=== PATIENT | male | born 1960 | race Two or more races ===

== ENCOUNTER 2020-10-24 11:26 | Emergency (ER) | payer OTHER, SELFPAY ==
--- NOTE | ~2020-10-24 | XR_ITS ---
EXAMINATION: XR CHEST CLINICAL INFORMATION: Cough. COMPARISON: None TECHNIQUE: Frontal view of the chest was obtained. FINDINGS: The lungs are well-expanded and clear of acute pneumonic process. There are reticular nodular changes in right lung apex, likely chronic changes. The heart size and pulmonary vascularity is normal. No gross bony abnormality seen. XR/XR chest 1V IMPRESSION: Fibronodular changes right upper lobe likely chronic findings. Cannot exclude underlying primary pulmonary nodules. Correlate with clinical history.
[2020-10-24 11:53] VITALS: BP 117/58; PULSE 95; RESP 18; TEMP 36.8; O2SAT 95; BMI 23.8
--- NOTE | 2020-10-24 12:32 | PC.NURSE ---
CXR AND NASAL SWAB HAVE BEEN DONE AND SENT FOR RESULTS NO ACUTE RESP DISTRESS NOTED
--- NOTE | 2020-10-24 12:33 | ED.URI ---
HPI - URI/Sore Throat General Chief Complaint: Upper Respiratory Symptoms Stated Complaint: cough Time Seen by Provider: 10/24/20 12:05 Source: patient and family () Mode of arrival: ambulatory Limitations: language barrier ( is translating at bedside) History of Present Illness HPI Narrative: 60-year-old male with a past medical history of hypercholesterolemia presenting to the ED with a productive cough x1 week after choking on a piece of corn on Thursday. Denies any other symptoms complaints or concerns. Denies recent travel or sick contacts. MD elicited complaint: cough Onset (ago): week(s) (One week worse today) Consistency: constant Severity: moderate Description of mucous: clear, watery and yellow Able to tolerate fluids by mouth: Yes Exacerbating factors: nothing Relieving factors: nothing Associated symptoms: denies other symptoms Treatments prior to arrival: none Related Data Previous Rx's Medication Instructions Recorded acetaminophen [Tylenol Extra 1,000 mg PO QID PRN #14 tab 10/24/20 Strength] albuterol sulfate 1 inh INHALATION QID PRN #8.5 g 10/24/20 azithromycin See Rx Instructions .ROUTE 10/24/20 .COMPLEX #6 tab prednisone 40 mg PO DAILY 5 Days #10 tab 10/24/20 tramadol 50 mg PO BID PRN #14 tab 10/24/20 Allergies Allergy/AdvReac Type Severity Reaction Status Date / Time naproxen [NAPROXEN] Allergy Unknown UNK Unverified 05/10/20 17:44 oxycodone [OXYCODONE] Allergy Unknown UNK Unverified 05/10/20 17:44 Penicillins [PENICILLINS] Allergy Unknown RASH Unverified 05/10/20 17:44 Review of Systems Review of Systems: Constitutional : No Fever, No Chills, No fatigue, No Malaise ENT/Mouth : No sore throat, No runny nose Eyes: No Discharge Cardiovascular : No Chest Pain, No SOB Respiratory : + Cough, + Sputum, No Wheezing, No Smoke Exposure, No Dyspnea Gastrointestinal : No Nausea, No Vomiting, No Diarrhea Genitourinary : No irregular bleeding, No Dysuria, No Urinary Frequency, No Hematuria, No Urinary Incontinence, No Urgency, No Flank Pain, Musculoskeletal : No Myalgia Skin : No rash Neuro : No Headache Yes all other systems are reviewed and are negative PMFSH Past Medical History Attestation statement: The following information was validated with the patient. Social History Social History Advance Directives: No Advance Directives Information Provided: No Physical Exam Vital Signs: Vital Signs: Last Vital Signs Temp 98.2 F 10/24/20 11:53 Pulse 77 10/24/20 13:50 Resp 18 10/24/20 13:50 BP 128/60 10/24/20 13:50 Pulse Ox 98 10/24/20 13:50 Body Mass Index 23.8 vital signs have been reviewed as normal and appeared to be correct. Blood pressure normal. Heart rate normal. Respiration rate normal. Temperature normal. Oxygen saturation normal. Appearance: Alert. Oriented X3. No acute distress. Head: Normal external exam. Normocephalic. Atraumatic. Eyes: PERRLA. EOMI. Conjunctiva and sclera normal. Eyelids normal. ENT: EAC normal. TM's Normal. Pharynx normal. Uvula midline. Moist mucous membranes. No trismus noted. No drooling noted. No muffled voice noted. Neck: Normal inspection. Neck supple. FROM. No adenopathy. Thyroid Normal. No meningeal signs. No neck mass noted. CVS: Normal heart rate and rhythm. Heart sound normal. No murmurs noted. Pulses normal throughout. Respiratory: No respiratory distress. Painless inspiration. Breath sounds normal. No wheezes/rales/rhonchi noted. Chest nontender. No accessory muscle usage noted or decreased air movement noted. Abdomen: Soft and nontender. Bowel sounds normal in all 4 quadrants. No distention noted. No organomegaly noted. No visible injury noted. Back: Full range of motion noted. Skin: Skin warm and dry. Normal skin color. Normal skin turgor. No rashes/lesions/lacerations noted. Extremities: No lower extremity edema. No calf tenderness noted. Extremities exhibit normal range of motion. Extremities nontender. Neuro: Oriented X 3. No motor deficit. No sensory deficit. Reflexes normal. Course Course Course Narrative: 12pm - 60-year-old male with a past medical history of hypercholesterolemia presenting to the ED with a productive cough x1 week after choking on a piece of corn on Thursday. - concern for pneumonia vs COVID vs viral syndrome - COVID/RSV/flu swab and a chest x-ray - if chest x-ray negative for pneumonia will DC home with antibiotics and symptomatic treatment along with instructions to self isolate until COVID swab is negative or until his symptoms are improving and 10-14 days after his 1st symptoms started. Patient understands and agrees with this plan. MDM - URI/Sore Throat Medical Records Attestation: I reviewed the patient's medical records. Lab Data Attestation: I reviewed the patient's lab results. Labs: Lab Results 10/24/20 Range/Units 12:19 Coronavirus (PCR) NEGATIVE (Negative) Influenza Type A (PCR) NEGATIVE (Negative) Influenza Type B (PCR) NEGATIVE (Negative) RSV RNA Qual (PCR) NEGATIVE (Negative) Imaging Data Chest x-ray: Attestation: I personally reviewed and interpreted this imaging study as follows: Radiologist's impression: FINDINGS: The lungs are well-expanded and clear of acute pneumonic process. There are reticular nodular changes in right lung apex, likely chronic changes. The heart size and pulmonary vascularity is normal. No gross bony abnormality seen. XR/XR chest 1V IMPRESSION: Fibronodular changes right upper lobe likely chronic findings. Cannot exclude underlying primary pulmonary nodules. Correlate with clinical history. Discharge Plan Discharge Clinical Impression: Bronchitis Patient Disposition: Home, Self-Care Instructions: Acute Bronchitis (ED) Prescriptions: New azithromycin 250 mg tablet See Rx Instructions .ROUTE .COMPLEX Qty: 6 RF: 0 prednisone 20 mg tablet 40 mg PO DAILY 5 Days Qty: 10 RF: 0 tramadol 50 mg tablet 50 mg PO BID PRN (Reason: pain) Qty: 14 RF: 0 acetaminophen [Tylenol Extra Strength] 500 mg tablet 1,000 mg PO QID PRN (Reason: fever or pain) Qty: 14 RF: 0 albuterol sulfate 90 mcg/actuation HFA aerosol inhaler 1 inh inhalation QID PRN (Reason: shortness of breath or wheezing) Qty: 8.5 RF: 0 Referrals: Physician,Unknown [Primary Care Provider] - 2 days Interventions: ED Discharge Assessment Last Done: 10/24/20 14:51 Discharge Date/Time: 10/24/20 14:53 Print Language: Kittitian
[2020-10-24 13:42] LABS: Influenza A PCR NEGATIVE (Negative); Influenza B PCR NEGATIVE (Negative); Resp Syncy Virus RNA Qual PCR NEGATIVE (Negative); SARS COV2 PCR INHOUSE NEGATIVE (Negative)
[2020-10-24 13:50] VITALS: BP 128/60; PULSE 77; RESP 18; O2SAT 98
== END 2020-10-24 14:53 | disposition home or self-care (01) ==
PROVIDERS: Physician Assistant Medical; Emergency Provider Emergency Medicine
DX: J40 Bronchitis, not specified as acute or chronic (principal); R05 Cough; Z20.822 Contact with and (suspected) exposure to COVID-19; Z79.899 Other long term (current) drug therapy
CPT/HCPCS: 0241U; 36415; 71045; 99283

== ENCOUNTER 2025-08-09 10:55 | Outpatient (AMB) | payer MEDICAID, SELFPAY ==
[2025-08-09 11:05] VITALS: BMI 23.6
--- NOTE | 2025-08-09 11:05 | A.PHYSOV ---
Vital Signs 08/09/25 11:05 Height 5 ft 5 in Weight 142 lb BMI 23.6 Intake Visit Reasons: 3M and F/U after injection 06/08/2025 Intake Note: Patient is a 65 year old male in office today for a follow up visit on 3 month medication management. Follow after C7-T1 interlaminar epidural injection 06/08/25 Allergies naproxen (NAPROXEN) Allergy (Unknown, Verified 08/09/25 11:05) UNK oxycodone (OXYCODONE) Allergy (Unknown, Verified 08/09/25 11:05) UNK Penicillins (PENICILLINS) Allergy (Unknown, Verified 08/09/25 11:05) RASH prednisone Allergy (Unknown, Verified 08/09/25 11:05) Unknown HPI Comments Details: History of Present Illness The patient is a 65 year old male presenting for a follow-up visit for persistent neck pain and cervicogenic headaches. His history is significant for multiple bilateral greater occipital nerve blocks, as well as cervical and lumbar epidural injections. His most recent procedures were on May 29, 2025, which included a C7-T1 epidural injection and a left L5 transforaminal injection for left-sided lumbar radicular symptoms. The lumbar injection provided good relief for his leg symptoms, but he continues to experience headaches, which have been constant over the past week. His chronic pain is managed with a combination of a buprenorphine patch, tramadol as needed for breakthrough pain, duloxetine 30 mg daily, diclofenac 75 mg twice daily as needed, and lidocaine patches. He reports that the diclofenac 75 mg is very effective for his pain. Functionally, he experiences pain after walking for about one hour and finds it helpful to use a shopping cart for support when at the supermarket. Cervicogenic headaches have been getting worse. He also has component of the rebound headaches. Pain Description - Location: The patient reports persistent pain in the neck and head, described as cervicogenic headaches. - Quality: The patient describes the pain as being too much. - Exacerbating Factors: Pain is exacerbated by walking for about an hour. - Relieving Factors: Pushing a shopping cart helps alleviate pain when walking in a store. - Relieving Factors: Prior left L5 transforaminal injection helped with left leg radicular symptoms. - Relieving Factors: He reports diclofenac 75 mg is very good for his pain. Results [facility] Medical History Cervicocranial syndrome Cervical radiculitis Chronic pain syndrome Surgical History History of nasal surgery History of hand surgery Social History Household Members: Spouse Alcohol intake: current Alcohol intake frequency: does not drink Patient Tobacco Use Status: Current everyday Tobacco user Current occupational status: unemployed Review of Systems Narrative Review of Systems - Neurological: Reports persistent neck pain and cervicogenic headaches, with headaches noted all over his head in the last week. - Cardiovascular: Reports he has no problems with his blood pressure. - Musculoskeletal: Denies current left leg pain following a recent injection. Physical Exam Exam Exam: Physical Exam - General: No acute distress noted. - Integumentary: Inspection revealed no bleeding. Patient ambulates without antalgia. Dural tension signs were negative. Neurological examination of upper and lower extremities was nonfocal. Occipital tenderness with palpation. Cervical range of motion was restricted in all planes. Lumbar extension was restricted. Patient demonstrated no upper motor neuron signs. Vital Signs: BMI result Body Mass Index 23.6 Office Procedures AMB Occipital Nerve Block Occipital Nerve Block Procedure Details: Skin on the back of her head was prepped with alcohol. Greater occipital nerve was localized by palpating approximately 2-3 cm lateral to the external occipital protuberance. About [address] between occipital protuberance and mastoid process. 25 gauge needle was inserted perpendicular to the skin and total volume of 3 cc containing 20 mg of triamcinolone and 2% lidocaine was injected. The identical procedure was repeated on the opposite side. Occipital Nerve Block - 00449: Bilateral All charges added?: Procedure code (CPT) selection complete Office Meds Kenalog 40 mg/mL suspension for injection Performing Provider: Serg Goodwin DO Performing Location: [facility] Administered by: Serg Goodwin DO on 08/09/25 11:50 Dose Route Admin Location Dispensed Lot Number Expiration Date [employer] A[employer] 40 mg peripheral nerve block 1 mL [address]-3 [employer] Total Dispensed Waste 1 mL 0 % lidocaine (PF) 20 mg/mL (2 %) injection solution Performing Provider: Serg Goodwin DO Performing Location: [facility] Administered by: Serg Goodwin DO on 08/09/25 11:50 Dose Route Admin Location Dispensed Lot Number Expiration Date [facility] Research Aide 120 mg peripheral nerve block 10 mL [id number] [facility] Total Dispensed Waste 10 mL 40 % Assessment & Plan Assessment & Plan (1) Chronic pain syndrome: Code(s): G89.4 - Chronic pain syndrome Category: Medical (2) Cervical radiculitis: Code(s): M54.12 - Radiculopathy, cervical region Category: Medical (3) Cervicocranial syndrome: Code(s): M53.0 - Cervicocranial syndrome Category: Medical (4) Myofascial pain: Code(s): M79.18 - Myalgia, other site Category: Medical (5) Chronic pain syndrome: Code(s): G89.4 - Chronic pain syndrome Category: Medical (6) Cervical radiculitis: Code(s): M54.12 - Radiculopathy, cervical region Category: Medical (7) Cervicocranial syndrome: Code(s): M53.0 - Cervicocranial syndrome Category: Medical (8) Occipital neuralgia: Code(s): M54.81 - Occipital neuralgia Category: Medical Qualifiers: Laterality: bilateral Qualified Code(s): M54.81 - Occipital neuralgia Plan Pain Management - Analgesia: The patient is currently using a buprenorphine 7.5 mcg patch weekly, tramadol as needed, duloxetine 30 mg daily, diclofenac 75 mg twice a day as needed, and lidocaine patches. - Analgesia: He reports his headaches are persistent and that the pain is too much, prompting a request for stronger medication. - Analgesia: He finds diclofenac 75 mg to be very effective. - Adverse Effects: The potential for rebound headaches from regular tramadol use was discussed as a cause for his persistent headaches. - Activities of Daily Living: He experiences pain after walking for about an hour, but using a shopping cart provides support and helps him walk in a store. - Aberrant Drug Related Behaviors: He requested a stronger pain medication. Plan Patient was informed and verbally consented to the use of an ambient scribe for clinic note documentation during this visit. 1. Cervicogenic Headache The patient's persistent headaches are suspected to be exacerbated by rebound effects from regular tramadol use. The plan is to increase the buprenorphine patch from 7.5 mcg to 10 mcg weekly to provide better baseline analgesia. The patient was counseled to reduce or avoid using tramadol. A prescription for Tylenol was provided for additional pain relief, after clarifying that it is the same medication as Panadol. 2. Chronic Neck Pain The patient's chronic neck pain will continue to be managed with his current multimodal regimen. Refills will be provided for duloxetine 30 mg, diclofenac topical gel, and lidocaine patches. He will also continue diclofenac 75 mg tablets as needed, which he finds effective. 3. Left Lumbar Radiculopathy The patient's left-sided lumbar radicular symptoms have responded well to the recent left L5 transforaminal injection. No new interventions are planned for this issue at this time. He will follow up in three months for further evaluation. Discussion Notes I discussed my concern that the patient's persistent headaches may be rebound headaches caused by his regular use of tramadol. I recommended reducing tramadol use in attempt to reduce rebound headaches and instead increasing the dose of his long-acting buprenorphine patch from 7.5 mcg to 10 mcg to provide better, more stable pain control. The patient agreed to this plan. We also discussed his request for Panadol, and I clarified that this is the same as Tylenol (acetaminophen), for which I will send a prescription. I will provide refills for his other medications, including duloxetine, diclofenac gel, and lidocaine patches. The patient signed consent for the repeat greater occipital nerve blocks today. Follow-up is scheduled in three months, after he returns from his vacation. Risks and benefits of the procedure were discussed with the patient. Potential alternative measures were also discussed. Patient understands that the procedure is completely elective. Potential side effects associated with injectable medications were discussed. All questions were answered to the patient's satisfaction. Patient Instructions - I am increasing the dose of your pain patch. Change your buprenorphine patch to the 10 mcg dose once every week. - Try not to use the tramadol. Using it too often may be making your headaches worse. - A prescription for Tylenol has been sent to your pharmacy. This is the same medicine as Panadol. - Prescriptions for your other medicines, including diclofenac gel, lidocaine patches, and duloxetine (Cymbalta), have been sent to your pharmacy. - If you need to walk for a long distance, using a walker may help. - Please schedule a follow-up appointment for March, after you return from your trip. Orders: Orders AMB Occipital Nerve Block Today M53.0 - Cervicocranial syndrome, M54.81 - Occipital neuralgia Medications: New lidocaine 5% Applied daily 12 hours on, 12 hours off 3 patches topical Q24H 90 ea 5RF Myofascial pain 30 days M54.12 - Radiculopathy, cervical region, M79.18 - Myalgia, other site acetaminophen Up to 6 tablets a day. 1,000 mg (2 x 500 mg) PO Q6H PRN 180 tabs 5RF pain 30 days G89.4 - Chronic pain syndrome, M53.0 - Cervicocranial syndrome, M54.12 - Radiculopathy, cervical region buprenorphine 10 mcg/hour 1 patch transdermal QWEEK 4 ea 0RF Chronic pain syndrome 28 days G89.4 - Chronic pain syndrome, M53.0 - Cervicocranial syndrome, M54.12 - Radiculopathy, cervical region diclofenac sodium 1% (Arthritis Pain (diclofenac)) Applied to affected area 3 times a day 4 grams topical QID 300 grams 5RF 30 days M53.0 - Cervicocranial syndrome, M79.18 - Myalgia, other site duloxetine 30 mg PO DAILY 30 caps 11RF Chronic pain syndrome 30 days G89.4 - Chronic pain syndrome Discontinued buprenorphine 7.5 mcg/hour (No) Discontinued Reason: Doctor's Order 1 patch transdermal QWEEK 28 days 4 ea 0RF Chronic pain syndrome G89.4 - Chronic pain syndrome, M53.0 - Cervicocranial syndrome, M54.12 - Radiculopathy, cervical region Coding Level of Care Code Est Pt Level 4 (23033) Add On Problem Visit Only Diagnoses Chronic pain syndrome G89.4 Cervical radiculitis M54.12 Cervicocranial syndrome M53.0 Myofascial pain M79.18 Bilateral occipital neuralgia M54.81 Laterality: bilateral CPT Codes Occipital Nerve Block - Occipital Block 05374: Bilateral ([id number])
--- OUTSIDE RECORDS SUMMARY | 2025-08-09 14:13 | XMS_ITS | Encounter Summary ---
Author Organization [facility] Address [address] [place] [address] Care Team Providers Care Salvage Engineer Name Role Phone Anya Wilks Primary Care Provider [phone] Reason for Visit * Reason Onset Date Comments Prior authorization 08/07/2025 Encounter Details Date Type Department Care Team ([facility] st Contact Info) Description 08/07/2025 Telephone Pulmonology - [address] [place] [address] Jeanna Garza, [address] [place] [address] Social History Tobacco Use Types Packs/Day Years Used Date Smoking Tobacco: Every Day Cigarettes 0.5 43 Started: 1982 Smokeless Tobacco: Never Comments:Smoke 5 cigaretts a day but before the nicotine gum he used to smoke 1 pack daily Alcohol Use Standard Drinks/Week Comments No 0 (1 standard drink = 0.6 oz pur e alcohol) Sex and Gender Information Value Date Recorded Sex Assigned at Not on file Legal Sex Male 12:48 AM EST Gender Identity Not on file Sexual Orientation Not on file documented as of this encounter Progress Notes * Rober Becker MA - 08/07/2025 12:56 PM EST Faxed notes * Caesar Jarvis - 08/07/2025 11:57 AM EST Prior authorization request administrative information forms received via fax. Forms attached to encounter. * Caesar Jarvis - 08/07/2025 11:54 AM EST PA: ROFLUMILAST 250 MCG TABS COY: [id number] documented in this encounter Plan of Treatment Upcoming Encounters Date Type Department Care Team (Late st Contact Info) Description 10/30/2025 11:25 AM EDT Office Visit Pulmonology - [place] [address] [facility] [address] [place] [phone] Jeanna Garza NP [address] [place] [address] documented as of this encounter Visit Diagnoses Not on filedocumented in this encounter Care Teams Salvage Engineer Relationship Specialty Start Date End Date Anya Wilks PA [address] [place] [address] PCP - General 12/05/24 documented as of this encounter
--- OUTSIDE RECORDS SUMMARY | 2025-08-09 14:13 | XMS_ITS | Clinical Summary ---
Author Organization [employer] Address [address] [facility] [address] [place] [address] Care Team Providers Care Associate Professor Of Economics Name Role Phone Unavailable Primary Care Provider Unavailabl e Social History Tobacco Use Types Packs/Day Years Used Date Smoking Tobacco: Never Assessed Sex and Gender Information Value Date Recorded Sex Assigned at Not on file Legal Sex Male 9:33 PM EDT Gender Identity Not on file Sexual Orientation Not on file Plan of Treatment Health Maintenance Due Date Last Done Comments CT Colonography 1962 Colonoscopy 1962 Colorectal Cancer Screening 1962 Depression Screening 1962 FIT DNA/Cologuard 1962 FIT 1962 FOBT 1962 Lipid Panel 1962 SDOH Screening 1962 Sigmoidoscopy 1962 Disability Screening 1962 Alcohol/Substance Use Screening 1974 Tobacco Screening 1974 Hepatitis C Screening 1980 IPV Vaccines (2 of 3 - Adult catch-up series) 06/09/2008 05/12/2008 RSV Patients and Patients Aged 60 years or older (1 - Risk 50-74 years 1-dose series) 2012 Pneumococcal Vaccine: 50+ Years (2 of 2 - PCV) 03/31/2019 03/31/2018 COVID-19 Vaccine (3 - season) 2025 01/07/2021, 12/05/2020 Diabetes: Hemoglobin A1C 05/11/2026 025, 11/28/2024, 05/10/2024, Additional history exists DTaP/Tdap/Td Vaccines (2 - Td or Tdap) 03/31/2028 03/31/2018, 06/12/2008, 05/12/2008 Hepatitis A Vaccines Aged Out 12/26/2009, 10/20/20 08 No longer eligible based on patient's age to complete this topic Hepatitis B Vaccines Completed 12/26/2009, 08/07/2008, 06/12/2008 HIV Screening Completed 04/09/2018 Meningococcal Vaccine Aged Out 10/07/2018 No ross ghulam eligible based on patient's age to complete this topic Influenza Vaccine Completed 05/11/2025, , 10/03/2020, Additional history exists Zoster Vaccines Completed 05/11/2025, 01/2022, 05/05/2019 HIB Vaccines Aged Out No longer eligi ble based on patient's age to complete this topic HPV Vaccines Aged Out No longer eligi ble based on patient's age to complete this topic Meningococcal B Vaccine Aged Out No l onger eligible based on patient's age to complete this topic RSV under 20 months Aged Out No longe r eligible based on patient's age to complete this topic Rotavirus Vaccines Aged Out No longer eligible based on patient's age to complete this topic
--- OUTSIDE RECORDS SUMMARY | 2025-08-09 14:13 | XMS_ITS | Encounter Summary ---
Author Organization [facility] Address [address] [place] [address] Care Team Providers Care Deputy District Customs Director Name Role Phone Anya Wilks Primary Care Provider Reason for Visit * Reason Onset Date Comments Medication Problem 08/01/2025 Encounter Details Date Type Department Care Team ([facility] st Contact Info) Description 08/01/2025 Telephone Pulmonology - [place] [address] [facility] [address] [place] [address] Jeanna Garza, [address] [place] [address] Social History Tobacco Use Types [...] as of this encounter Progress Notes * Veronica Mohamud MA - 08/03/2025 8:32 AM EST PA: KATJA Rincon * Veronica Mohamud MA - 08/02/2025 2:10 PM EST PA: TRELEGY ELLIPTA 200-62.5 MCG/ACT AER POW initiated on cmm Dx chronic cough and copd * Caesar Jarvis - 08/01/2025 2:25 PM EST PA: TRELEGY ELLIPTA 200-62.5 MCG/ACT AER POW COY: [id number] * Caesar Jarvis - 08/01/2025 2:23 PM EST PA: ROFLUMILAST 250 MCG TABS COY: [id number] documented in this encounter Plan of Treatment Upcoming Encounters Date Type Department Care Team (Late st Contact Info) Description 10/30/2025 11:25 AM EDT Office Visit Pulmonology - [place] [address] [facility] [address] [place] [phone] Jeanna Garza NP [address] [place] [address] documented as of this encounter Visit Diagnoses Not on filedocumented in this encounter Care Teams Deputy District Customs Director Relationship Specialty Start Date End Date Anya Wilks PA [address] [place] [address] PCP - General 12/05/24 documented as of this encounter
--- OUTSIDE RECORDS SUMMARY | 2025-08-09 14:13 | XMS_ITS | Clinical Summary ---
Author Organization [address] [facility] Address [address] [place] [address] Phone Care Team Providers Care Table Cut Off Saw Operator Name Role Phone Anya Wilks Primary Care Provider [phone] Allergies Active Allergy Reactions Criticality Noted Date Comments Aspirin 12/05/2024 Naproxen Wheezing 11/13/2015 Oxycodone Wheezing 11/13/2015 Penicillins Itching 06/21/2014 Prednisone Other Low 08/09/2015 Agitation Medications cholecalcifero l (VITAMIN D-3) 25 mcg (1,000 unit) tablet Take 1 tablet (1,000 Units total) by mouth 1 (one) time each day. Active diphenhydrAMIN E (BENADRYL) 25 mg capsule Take by mouth every 6 (six) hours if needed for itching. Active metFORMIN (FORTAMET) 1,000 mg 24 hr tablet Take 1 tablet (1,000 mg total) by mouth 1 (one) time each day with dinner. Do not crush, chew, or split. Active ammonium lactate (LAC-HYDRIN) 12 % lotion Apply topically if needed for dry skin. Active melatonin 3 mg tablet Take 2 tablets (6 mg total) by mouth. Active atorvastatin (LIPITOR) 20 mg tablet Take 1 tablet (20 mg total) by mouth at bedtime. Active omeprazole (PriLOSEC) [address] capsule Take 1 capsule (20 mg total) by mouth 1 (one) time each day. Do not crush or chew. Active diclofenac (VOLTAREN) 75 mg EC tablet Take 1 tablet (75 mg total) by mouth 2 (two) times a day. 12/28/19 25 Active diclofenac (VOLTAREN) 1 % topical gel APPLY 3 GRAMS TOPICALLY THREE TIMES A DAY 12/25/19 25 Active docusate sodium (COLACE) 100 mg capsule Take 1 capsule (100 mg total) by mouth. 12/18/19 22 Active DULoxetine (CYMBALTA) [address] capsule Take 1 capsule (30 mg total) by mouth 1 (one) time each day. 12/24/19 25 Active EPINEPHrine (EpiPen 2-Perry) 0.3 mg/0.3 mL injection Inject 0.3 mL (0.3 mg total) into the thigh if needed. 07/07/20 12 Active fluticasone propionate (FLONASE) 50 mcg/actuation nasal spray Administer 1 spray into each nostril 1 (one) time each day. 10/08/19 24 Active hydrOXYzine HCL (ATARAX) 50 mg tablet Take 1 tablet (50 mg total) by mouth 1 (one) time each day. 12/22/19 25 Active lidocaine (LIDODERM) 5 % patch APPLY 1-3 TOPICAL EVERY DAY FOR 30 DAYS. 12 HOURS ON/12 HOURS OFF 12/23/19 25 Active nicotine polacrilex (NICORETTE) 2 mg gum Weeks 1-6: 1 piece of gum every 1-2 hours; chew at least 9 pieces per day during the first 6 weeks to increase chances of quitting. Weeks 7-9: 1 piece of gum every 2-4 hours. Weeks 10-12: 1 piece of gum every 4-8 hours 12/20/19 25 Active oxyBUTYnin XL (DITROPAN-XL) 10 mg 24 hr tablet TAKE 1 TABLET BY MOUTH EVERYDAY AT BEDTIME Authorized by: WYATT MARSHALL 03/09/20 23 Active prazosin (MINIPRESS) 2 mg capsule TAKE 1 CAPSULE BY MOUTH AT BEDTIME FOR NIGHTMARES Active traMADoL (ULTRAM) 50 mg tablet TAKE 1-2 TABLET ORAL THREE TIMES A DAY NEEDED FOR 28 DAYS 12/28/19 25 Active traZODone (DESYREL) 100 mg tablet TAKE 1-2 TABLETS BY MOUTH AT BEDTIME IF NEEDED FOR SLEEP. 12/22/19 25 Active nebulizer accessories kit COPD use as needed for exacerbations 11/09/19 24 Active nebulizer and compressor device COPD use as needed for exacerbations 11/09/19 24 Active loratadine (CLARITIN) 10 mg tablet Take 1 tablet (10 mg total) by mouth 1 (one) time each day if needed for allergies. Active albuterol HFA (PROAIR HFA ; PROVENTIL HFA ; VENTOLIN HFA) 90 mcg/actuation inhalerIndicat ions:Chronic cough Inhale 2 puffs by mouth every 6 (six) hours if needed for wheezing. 18 g 2 01/24/20 25 Active albuterol 2.5 mg /3 mL (0.083 %) nebulizer solutionIndica tions:Chronic cough Take 3 mL (2.5 mg total) by nebulization every 4 (four) hours if needed for shortness of breath or wheezing (cough and). 75 mL 1 01/24/20 25 Active ipratropium-al buteroL (DUONEB) 0.5-2.5 mg/3 mL nebulizer solutionIndica tions:Chronic cough,Chronic obstructive pulmonary disease, unspecified COPD type (CMS/HCC V24, CMS/HCC V28) Take 3 mL by nebulization every 6 (six) hours. 360 mL 2 05/15/20 25 2025 Active fluticasone-um eclidinium-kenneth anterol (Trelegy Ellipta) 200-62.5-25 mcg inhalerIndicat ions:Chronic cough,Chronic obstructive pulmonary disease, unspecified COPD type (CMS/HCC V24, CMS/HCC V28) Inhale 1 puff (200 mcg total) by mouth 1 (one) time each day. Rinse mouth with water after use to reduce aftertaste and incidence of candidiasis. Do not swallow. 1 each 2 07/31/20 25 2025 Active roflumilast (Daliresp) 250 mcg tabletIndicati ons:Chronic obstructive pulmonary disease, unspecified COPD type (CMS/HCC V24, CMS/HCC V28) Take 250 mcg by mouth 1 (one) time each day. 28 tablet 07/31/20 25 Active Anoro Ellipta 62.5-25 mcg/actuation inhalerIndicat ions:Chronic cough,Cigarett e smoker Inhale 1 puff by mouth 1 (one) time each day. 1 each 2 05/15/20 25 2024 Discontinued fluticasone furoate (Arnuity Ellipta) 200 mcg/actuation blister with device inhalerIndicat ions:Chronic cough,Chronic obstructive pulmonary disease, unspecified COPD type (CMS/HCC V24, CMS/HCC V28) Inhale 1 puff by mouth 1 (one) time each day. 1 each 4 05/15/20 25 2024 Discontinued Active Problems Problem Noted Date Diagnosed Date Constipation 05/05/2019 External hemorrhoid 02/24/2019 Sigmoid diverticulosis 02/24/2019 Overview (01/23/2025): Mild per colonoscopy COPD (chronic obstructive pulmonary disease) Overview (01/23/2025): PFTs 05/14/18 show mild obstruction. Trigger finger of all digits of both hands 01/23 Overview (01/23/2025): Trigger finger 4th finger of L hand- Dr Brush at [facility] 04/19/18 F/u [facility], Dr Brush. Dx: s/p FDP rupture left ring finger, s/p dorsal capsulectomy L fourth PIP joint. Advised wear gloves in the winter for cold intolerance, there is not a surgical option for lack of flexion at DIP joint that would not put flexion of his other joints at risk. Pre-diabetes 01/05/2014 Chronic midline low back pain without sciatica 0 01/04/2014 Nephrolithiasis 01/04/2014 Overview (01/23/2025): Follows with [facility] Urology PPD positive, treated 01/04/2014 Overview (01/23/2025): At [facility] TB clinic from 07/2008 till 11/2008 with Rifampim Depression 06/30/2013 PTSD (post-traumatic stress disorder) 06/30/2013 Hypercholesterolemia 06/29/2013 Overview (01/23/2025): Lab Results Component Value Date TRIGLYC 129 01/04/2014 CHOL 202* 01/04/2014 HDL 35* 01/04/2014 LDL 142* 01/04/2014 Brachial neuritis or radiculitis 04/07/2011 Overview (01/23/2025): IMO update Cervical spondylosis without myelopathy 04/07/20 11 Cervicalgia 04/07/2011 Overview (01/23/2025): Sp epid inject by dr cervantes on 05/24/14 04/14/17 F/u with Dr Cervantes, Dx: Brachial neuritis or radiculitis. Advised contnue medications, TENS unit, continue HEP, recommend PT, will proceed with greater occipital nerve blocks and L shoulder subacromial injection. C7-T1 AJAY will be scehduled. 06/18/17 F/u Dr Cervantes. Plan: continue TENS unit, HEP. Cervical injections repeated PRN, proceed with bialteral greater occipital nerve blocks. F/u 3 months 09/18/17 F/u Dr Cervantes. Advised continue TENS unit, continue HEP, repeat C7-T1 epidural steorid injection and bialteral greater occipital nerve blocks. F/u 3 months 04/08/18 F/u Dr Adams. Contiue repeat C7-T1 injections and occipital nerve blocks. Start duloxetine 30 mg for pain management. 06-08-18 - Dr. Cervantes - continue all meds without change, will trial cervical epidural injections and occipital nerve blocks. RTC in 2 months. 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 Closed fracture of one rib 09/11/2010 Overview (01/23/2025): RIGHT #8/9 Encounters Date Type Department Care Team Description 08/07/2025 Telephone Pulmonology [address] [place] [address] Jeanna Garza NP 08/01/2025 Telephone Pulmonology [facility] [address] [facility] [address] [place] [phone] Jeanna Garza NP 07/31/2025 10:35 AM EST Office Visit Pulmonology - [address] [place] [phone] Jeanna Garza NP Chronic cough (Primary Dx); Chronic obstructive pulmonary disease, unspecified COPD type ([facility] V24, [facility] V28); Lung nodule seen on imaging study; Overweight (BMI 25.0-29.9) 05/15/2025 1:25 PM EDT Office Visit Pulmonology [address] [phone] Jeanna Garza NP Chronic cough (Primary Dx); Cigarette smoker; Chronic obstructive pulmonary disease, unspecified COPD type ([facility] V24, [facility] V28) 05/15/2025 12:30 PM EDT Ancillary Procedure Pulmonology [address] [phone] Chronic cough; Cigarette smoker from Last 3 Months Immunizations Immunization Administration Dates Next Due Moderna SARS-CoV-2 COVID-19, mRNA, LNP-S, preservative free 01/07/2021,12/05/2020 Medical History Medical History Date Comments Cervical spondylosis without myelopathy DX:Cervical spondylosis without myelopathy Hypercholesterolemia 06/29/2013 Lab Results Component Value Date TRIGLYC 129 01/04/2014 CHOL 202* 01/04/2014 HDL 35* 01/04/2014 LDL 142* 01/04/2014 COPD (chronic obstructive pu lmonary disease) ([facility] V24, [facility] V28) Prediabetes Family History Medical History Relation Name Comments Autoimmune disease Neg Hx Breast cancer Neg Hx Colon cancer Neg Hx Coronary artery disease Neg Hx Diabetes Neg Hx Heart attack Neg Hx Heart failure Neg Hx Hyperlipidemia Neg Hx Hypertension Neg Hx Mental illness Neg Hx Prostate cancer Neg Hx Sleep apnea Neg Hx Thyroid disease Neg Hx Social History Tobacco Use Types Packs/Day Years Used Date Smoking Tobacco: Every Day Cigarettes 0.5 43 Started: 1982 Smokeless Tobacco: Never Tobacco Cessation:Ready to Q uit: Not Asked; Counseling Given: Not Answered Comments:Smoke 5 cigaretts a day but before the nicotine gum he used to smoke 1 pack daily Alcohol Use Standard Drinks/Week Comments No 0 (1 standard drink = 0.6 oz pur e alcohol) Sex and Gender Information Value Date Recorded Sex Assigned at Not on file Legal Sex Male 12:48 AM EST Gender Identity Not on file Sexual Orientation Not on file Last Filed Vital Signs Vital Sign Reading Time Taken Comments Blood Pressure 111/77 07/31/2025 10:30 AM EST Pulse 91 07/31/2025 10:30 AM EST Temperature 36.1 C (96.9 F) 07/31/2025 10:30 AM EST Respiratory Rate 14 07/31/2025 10:30 AM EST Oxygen Saturation 96% 07/31/2025 10:30 AM EST Inhaled Oxygen Concentration - - Weight 65.5 kg (144 lb 6.4 oz) 07/31/2025 10:30 AM EST Height 152.4 cm (5') 07/31/2025 10:30 AM EST Body Mass Index 28.2 07/31/2025 10:30 AM EST Plan of Treatment Upcoming Encounters Date Type Department Care Team (Late st Contact Info) Description 10/30/2025 11:25 AM EDT Office Visit Pulmonology - [address] [place] [phone] Jeanna Garza, [place] [address] [place] [address] Health Maintenance Due Date Last Done Comments Colorectal Cancer Screening: Colonoscopy 1960 IPV Vaccines (2 of 3 - Adult catch-up series) 06/09/2008 05/12/2008 RSV Immunization Adult Patients (1 - Risk 50-74 years 1-dose series) 2012 Pneumococcal Vaccine: 50+ Years (2 of 2 - PCV) 03/31/2019 03/31/2018 Social Influencers of Health Screening 07/27/2022 Depression Screening 08/24/2024 COVID-19 Vaccine ( - season) 2025 01/07/2021, 12/05/2020 Lung Cancer Screening (Low Dose CT) 03/21/2026 03/21/2025 DTaP,Tdap,and Td Vaccines (4 - Td or Tdap) 03/31/2028 03/31/2018, 06/12/2008, 05/12/2008 Cholesterol Screening (Lipid Panel) 05/11/2030 05/11/2025, 05/11/2025, 11/28/2024, Additional history exists MMR Vaccines Aged Out 08/04/2008, 05/12/2008 No lo nger eligible based on patient's age to complete this topic Hepatitis A Vaccines Aged Out 12/26/2009, 06/12/20 08 No longer eligible based on patient's age to complete this topic Hepatitis B Vaccines Completed 12/26/2009, 08/07/2008, 06/12/2008 HIV Screening Completed 04/09/2018 Hepatitis C Screening Completed 04/09/2018, 018 Meningococcal ACWY Vaccine Aged Out 10/07/2018 N o longer eligible based on patient's age to [...] patient's age to complete this topic RSV Immunization Patients Under 20 months Aged Out No longer eligible based on patient's age to complete this topic Varicella Vaccines Aged Out No longer eligible based on patient's age to complete this topic Procedures Procedure Name Priority Date/Time Associated Diagnosis Comments PULMONARY FUNCTION TESTING Routine 05/15/2025 12:50 PM EDT Chronic cough Cigarette smoker CT LUNG SCREENING Routine 03/21/2025 10: 49 AM EDT Encounter for screening for lung cancer Cigarette smoker from Last 3 Months or Most Recently Relevant to Health Maintenance Results * Pulmonary function testing: Carbon Monoxide Diffusing Capacity, Nitrogen Wash Out, Spirometry with Bronchodilator (05/15/2025 12:50 PM EDT) Impressions Berto Sinclair MD - 05/15/2025 12:50 PM EDT 05/15/2025 Spirometry FEV1 is 61% normal, FVC is 100% normal, FEV1/FVC ratio is decreased, no improvement in FEV1 post bronchodilators Lung volumes TLC is 85% normal, RV/TLC 67% normal Diffusion DLCO is 49% normal, DLCO/VA 66% normal In summary, this PFT shows moderate to severe obstructive changes consistent with emphysema us Jeanna Garza [place] PFT ORDERABLES Final R esult * CT Lung Screening (03/21/2025 10:49 AM EDT) Anatomical Region Laterality Modality Chest Computed Tomogra phy 03/23/2025 5:50 AM EDT Impressions 03/23/2025 6:02 AM EDT No suspicious pulmonary nodules Lung RADS 2: Benign Appearance or Behavior - Continue annual screening with LDCT in 12 months. -------- FINAL REPORT -------- Dictated By: Tabatha Hairston Dictated Date: 03/23/2025 05:50 ET Assigned Physician: Tabatha Hairston Reviewed and Electronically Signed By: Tabatha Hairston Signed Date: 03/23/2025 06:02 ET Workstation ID: [id number] Transcribed By: Self Edit Transcribed Date: 03/23/2025 05:50 ET Narrative 03/23/2025 6:02 AM EDT Indication: Greater than 20 total pack-year smoking history, asymptomatic current smoker Technique: Low-dose CT scan of the chest obtained as a lung cancer screening study. Multiplanar reformatted images were obtained. Dose reduction technique: ASIR (Adaptive statistical iterative reconstruction) and/or AEC (automated exposure control) DLP: 112.18 mGy-cm COMPARISON: None. Baseline.. FINDINGS: Lack of intravenous contrast limits evaluation of the zoe, vascular structures and visualized abdominal viscera. Lungs/airways: Secretions are noted within the distal trachea and left mainstem bronchus with mild bronchial wall thickening. There is motion at the lung bases. Emphysematous changes with biapical pleural-parenchymal scarring. Calcified granulomata. Bibasilar atelectasis. 5 mm solid nodule in the left upper lobe (series 3, image 88). Base of the neck, mediastinum, heart, chest wall, vessels: The assessment of hilar lymphadenopathy is difficult without the use of IV contrast. Nonenlarged mediastinal lymph nodes. Coronary artery calcifications. Possible small hiatal hernia. Upper abdomen: This study was performed without contrast and with lower than standard dose. These factors reduce the sensitivity for detection of small lesions in the upper abdomen. Mild fullness of the left adrenal gland which may represent a small adenoma or adrenal thickening. Bones/soft tissues: Degenerative changes Procedure Note Tabatha Hairston MD - 03/23/2025 Indication: Greater than 20 total pack-year smoking history, asymptomaticcurrent smoker Technique: Low-dose CT scan of the chest obtained as a lung cancerscreening study. Multiplanar reformatted images were obtained. Dosereduction technique: ASIR (Adaptive statistical iterative reconstruction)and/or AEC (automated exposure control) DLP: 112.18 mGy-cm COMPARISON: None. Baseline.. FINDINGS: Lack of intravenous contrast limits evaluation of the zoe,vascular structures and visualized abdominal viscera. Lungs/airways: Secretions are noted within the distal trachea and leftmainstem bronchus with mild bronchial wall thickening. There is motion atthe lung bases. Emphysematous changes with biapical pleural-parenchymalscarring. Calcified granulomata. Bibasilar atelectasis. 5 mm solid nodule in the left upper lobe (series 3, image 88). Base of the neck, mediastinum, heart, chest wall, vessels: The assessmentof hilar lymphadenopathy is difficult without the use of IV contrast.Nonenlarged mediastinal lymph nodes. Coronary artery calcifications.Possible small hiatal hernia. Upper abdomen: This study was performed without contrast and with lowerthan standard dose. These factors reduce the sensitivity for detection ofsmall lesions in the upper abdomen. Mild fullness of the left adrenalgland which may represent a small adenoma or adrenal thickening. Bones/soft tissues: Degenerative changes IMPRESSION: No suspicious pulmonary nodules Lung RADS 2: Benign Appearance or Behavior - Continue annual screeningwith LDCT in 12 months. -------- FINAL REPORT -------- Dictated By: Tabatha Hairston Dictated Date: 03/23/2025 05:50 ET Assigned Physician: Tabatha Hairston Reviewed and Electronically Signed By: Tabatha Hairston Signed Date: 03/23/2025 06:02 ET Workstation ID: [id number] Transcribed By: Self Edit Transcribed Date: 03/23/2025 05:50 ET Genevieve Aguilera MD IMG CT PROCEDURES Final Result from Last 3 Months or Most Recently Relevant to Health Maintenance Insurance MEDICAID - [place] Care Teams Table Cut Off Saw Operator Relationship Specialty Start Date End Date Anya Wilks PA [address] [place] [address] PCP - General 12/05/24
== END 2025-08-09 11:35 | disposition home or self-care (01) ==
LOC: HO.HPHYS 10:55
PROVIDERS: PCP Dentist General Practice; Visit Provider Physical Medicine & Rehabilitation
DX: G89.4 Chronic pain syndrome (principal); M54.12 Radiculopathy, cervical region; M53.0 Cervicocranial syndrome; M79.18 Myalgia, other site; M54.81 Occipital neuralgia
CPT/HCPCS: 64405; 99204

== ENCOUNTER → 2025-08-09 10:55 | Outpatient (BNVA) | payer MEDICAID, SELFPAY | PROVIDERS: PCP Dentist General Practice; Visit Provider Physical Medicine & Rehabilitation | DX: M54.12 Radiculopathy, cervical region (principal); G89.4 Chronic pain syndrome; M53.0 Cervicocranial syndrome; M54.81 Occipital neuralgia; M79.18 Myalgia, other site; F17.210 Nicotine dependence, cigarettes, uncomplicated | CPT/HCPCS: 64405; 99202; J2003; J3301 ==